=== PATIENT | male | born 1940 | race Caucasian/White ===

== ENCOUNTER → 2021-08-04 | Outpatient (CLI) | payer MEDICARE ==
[~2021-08-04] MED LIST: FINASTERIDE5 MG PO; FLOMAX0.4 MG PO; MULTIVITAMINS1 EAC7 PO; SENOKOT-S TABL1 EACH PO
== END ==
LOC: DX 09:19
PROVIDERS: ATTEND Surgery
DX: K44.9 Diaphragmatic hernia without obstruction or gangrene (principal); Z20.822 Contact with and (suspected) exposure to COVID-19
CPT/HCPCS: 74220; 74246; U0002